=== PATIENT | female | born 1985 | race Two or more races ===

== ENCOUNTER 2023-09-16 16:17 | Emergency (ER) | payer MEDICAID ==
[~2023-09-16] VITALS: Ht 149.9 cm; Wt 102.2 kg
[2023-09-16 19:25] VITALS: BP 109/51; PULSE 126; RESP 18; TEMP 98; O2SAT 97
[2023-09-16] MEDS ORDERED: methylPREDNISolone SOD SUCC 125 MG/2 ML VL IM ONE (20:15)
[2023-09-16] MEDS ORDERED: [UNRECOGNIZED DRUG - CODE] EX ×3 (20:16→20:18)
[2023-09-16] MEDS ORDERED: PRED20TA2 PO ×3 (20:16→20:18)
== END 2023-09-16 20:21 | disposition home or self-care (01) ==
LOC: ER 16:17
DX: L30.9 Dermatitis, unspecified (principal); Z79.899 Other long term (current) drug therapy; Z88.8 Allergy status to other drugs, medicaments and biological substances
CPT/HCPCS: 96372; 99283; J2930